=== PATIENT | female | born 1955 | race Caucasian/White ===

== ENCOUNTER 2016-07-17 20:42 | Emergency (ER) | payer OTHER ==
[~2016-07-17] VITALS: Ht 162.6 cm; Wt 68.0 kg
[2016-07-17 20:47] VITALS: BP 198/93
--- NOTE | 2016-07-17 21:02 | ED CARDIAC/CP/PALPITATIONS ---
History of Present Illness General Chief Complaint: General Adult Stated Complaint: "BILAT. EAR RINGING,HEART RACING X2WKS" Source: patient Exam Limitations: no limitations Vital Signs & Intake/Output Vital Signs & Intake/Output Vital Signs Date Time Temp Pulse Resp B/P Pulse O2 O2 Flow FiO2 Ox Delivery Rate 07/17 2046 96.1 82 20 198/93 97 Room Air Allergies Coded Allergies: No Known Allergies (07/17/16) Reconcile Medications No Known Home Medications Triage Note: TRIAGE: PT TO ER C/C BILATERAL EAR RINGING AND "I'M JUST VERY AWARE OF MY HEART BEATING. I JUST FEEL LIKE SOMETHINGS NOT RIGHT." DENIES ANY PAIN. STATES FEELS LIKE HER HEART IS BEATING FAST AND HARD. HR 80'S AT TRIAGE, PULSE FEELS IRREGULAR. AUTO B/P 198/93 AND MANUAL 180/90. Triage Nurses Notes Reviewed? yes Onset: Gradual Duration: better (2) Timing: recent history Quality/Severity: mild Radiation: no radiation Activities at Onset: none Associated Symptoms: RINGING IN EARS HPI: This is a 61-year-old female with no past medical history other than Lyme disease treated 6 years ago, no primary care doctor presents to the 2 week duration of irregular heartbeat. She denies any chest pain or shortness of breath but states that she knows something is not right. She denies any fever chills or any recent illnesses. Denies any recent travel or immobilization. 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 Positive family history of hypertension. Tonight she decided to come in for evaluation. Past History Travel History Traveled to [place] past 21 day No Medical History Any Pertinent Medical History? 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 Yes Review of Systems Review of Systems Constitutional: Denies: chills, fever. EENTM: Reports: no symptoms. Respiratory: Denies: cough, short of breath, sputum production. Cardiovascular: Reports: palpitations. Denies: chest pain, peripheral edema. GI: Reports: no symptoms. Genitourinary: Reports: no symptoms. Musculoskeletal: Reports: no symptoms. Skin: Reports: no symptoms. Neurological/Psychological: Reports: no symptoms. Hematologic/Endocrine: Denies: bruising, bleeding, polyuria, polydipsia. Immunologic/Allergic: Denies: splenectomy. All Other Systems: Reviewed and Negative Physical Exam Physical Exam General Appearance: well developed/nourished, alert, awake, anxious, mild distress Head: atraumatic, normal appearance Eyes: Bilateral: normal appearance, PERRL, EOMI. Ears, Nose, Throat: normal pharynx, hearing grossly normal, b/l cerumen impaction Neck: normal inspection, supple, full range of motion Respiratory: normal breath sounds, chest non-tender, no respiratory distress Cardiovascular: regular rate/rhythm, extra beats Peripheral Pulses: 2+ radial (R), 2+ radial (L) Core Measures ACS in differential dx? No Severe Sepsis Present: No Septic Shock Present: No Progress Differential Diagnosis: unstable angina, HTN, PVC, ARRHYTHMIA, THYROID DISEASE Plan of Care: Orders Procedure Date/time Status THYROID STIMULATING HORMONE 07/17 2102 Complete TROPONIN LEVEL 07/17 2102 Complete PARTIAL THROMBOPLASTIN TIME 07/17 2102 Complete PROTHROMBIN TIME 07/17 2102 Complete FREE T4 07/17 2102 Complete COMPREHENSIVE METABOLIC PANEL 07/17 2102 Complete CBC WITHOUT DIFFERENTIAL 07/17 2102 Complete EKG 07/17 2049 Active Laboratory Tests 07/17/162134: Anion Gap 8, Estimated GFR > 60, BUN/Creatinine Ratio 28.6 H, Glucose 88, Calcium 8.6, Total Bilirubin 0.3, AST 15, ALT 28, Alkaline Phosphatase 65, Troponin I < 0.01, Total Protein 6.3, Albumin 3.7, Globulin 2.6, Albumin/ Globulin Ratio 1.4, TSH 5.520 H, Free T4 1.05, PT 11.5, INR 1.10, APTT 31, CBC w Diff NO MAN DIFF REQ, RBC 3.94 L, MCV 88.7, MCH 30.4, RDW 12.9, MPV 10.7 H, Gran % 54.6, Lymphocytes % 30.7, Monocytes % 10.6 H, Eosinophils % 3.8, Basophils % 0.3, Absolute Granulocytes 3.6, Absolute Lymphocytes 2.1, Absolute Monocytes 0.7 H, Absolute Eosinophils 0.3, Absolute Basophils 0, PUBS MCHC 34.3 Labs within normal limits except for slightly elevated TSH. Multiple PVCs on monitor. Patient resting comfortably. Manual blood pressure is 152/90. She'll follow up outpatient with Vazquez Centeno MD for Holter monitor as well as with local primary care providers. (MAGY BRANCH,STEPHANIE) Initial ED EKG: NSR, PVC, LVH Rhythm Strip: normal sinus rhythm, PVC Departure Departure Time of Disposition: 2240 Disposition: HOME OR SELF CARE Condition: Stable Clinical Impression Primary Impression: PVCs (premature ventricular contractions) Secondary Impressions: Elevated blood pressure reading Referrals: JUANA BENAVIDES DO, MD,VAZQUEZ MAE MD,USSIE NUNN MD,DAVID Additional Instructions: Follow-up with the resident engineer listed regarding your symptoms. Please return to the ER for any changing or worsening symptoms. Departure Forms: Customer Survey General Discharge Information Prescriptions: Current Visit Scripts No Known Home Medications Critical Care Note Critical Care Note Critical Care Time: non-applicable
[2016-07-17 21:54] LABS: ABSOLUTE BASOPHIL COUNT 0 /CUMM (0.0-0.2); ABSOLUTE EOSINOPHIL COUNT 0.3 /CUMM (0.0-0.7); ABSOLUTE GRANULOCYTE CT 3.6 /CUMM (1.4-6.5); ABSOLUTE LYMPH COUNT 2.1 /CUMM (1.2-3.4); ABSOLUTE MONOCYTE COUNT 0.7 /CUMM (0.10-0.60); BASOPHIL % 0.3 % (0.0-2.0); EOSINOPHIL % 3.8 % (0-5); GRANULOCYTE % 54.6 % (42.2-75.2); MEAN CORPUSCULAR HGB 30.4 PG (27.0-31.0); MEAN CORPUSCULAR HGB CONC 34.3 G/DL (33.0-37.0); MEAN CORPUSCULAR VOLUME 88.7 FL (81.0-99.0); MEAN PLATELET VOLUME 10.7 FL (7.4-10.4); PLATELET COUNT 221 /CUMM (130-400); RBC DISTRIBUTION WIDTH 12.9 % (11.5-14.5); RED BLOOD CELL CT 3.94 /CUMM (4.20-5.40); WHITE BLOOD CELL COUNT 6.7 /CUMM (4.8-10.8)
[2016-07-17 22:09] LABS: PT 11.5 SEC (9.4-12.5); PTT 31 SEC (25-37)
== END 2016-07-17 22:58 ==
LOC: ERH 20:42
PROVIDERS: Emergency Medicine
DX: I49.3 Ventricular premature depolarization (principal); R03.0 Elevated blood-pressure reading, without diagnosis of hypertension
CPT/HCPCS: 93005; 93010